=== PATIENT | female | born 1970 | race Hispanic/Latino ===

== ENCOUNTER → 2021-08-03 | Day surgery (SDC) | payer BC ==
[~2021-08-03] MED LIST: CEFTRIAXONE 1 GM VIAL ONE; IOPAMIDOL 300MG/ML 50ML INFUS..BTL IV ONE; NITROFURANTOIN100 MG PO; SODIUM CHLORIDE 0.9% 50ML 50 ML ONE
[2021-08-03 08:20] VITALS: BP 121/76
== END | disposition home or self-care (01) ==
LOC: OR 05:58
PROVIDERS: ATTEND Urology
DX: N20.0 Calculus of kidney (principal); N20.1 Calculus of ureter; N21.0 Calculus in bladder; Z46.6 Encounter for fitting and adjustment of urinary device; R35.1 Nocturia; N39.0 Urinary tract infection, site not specified; I10 Essential (primary) hypertension; Z01.810 Encounter for preprocedural cardiovascular examination; Z01.812 Encounter for preprocedural laboratory examination; Z01.818 Encounter for other preprocedural examination; Z20.822 Contact with and (suspected) exposure to COVID-19
CPT/HCPCS: 50590; 52318; 74018; 81025; 88300; 93005; C1758; J0696; Q9967; U0002